=== PATIENT | female | born 1940 | race African-American/Black ===

== ENCOUNTER 2020-06-28 14:38 | Inpatient (IN) | payer OTHER ==
[~2020-06-28] VITALS: Ht 165.1 cm; Wt 99.8 kg
[2020-06-28 16:26] LABS: BASOPHILS % 0.5 % (0.0-2.0); EOSINOPHILS % 1.6 % (0.0-5.0); HEMATOCRIT. 38.8 % (36.0-48.0); HEMOGLOBIN. 12.5 g/dL (12.0-16.0); LYMPHOCYTES % 10.7 % (20.0-50.0); MEAN CORPUSCULAR HEMOGLOBIN 28.9 pg (28.0-32.0); MEAN CORPUSCULAR VOLUME 89.8 fL (81.0-99.0); MEAN PLATELET VOLUME 8.6 fl (7.4-10.4); MONOCYTES % 6.2 % (2.0-8.0); PLATELET 286 x1000/uL (130-400); RED BLOOD CELL COUNT 4.32 mill/uL (4.2-5.4); RED CELL DISTRIBUTION WIDTH 19.6 % (11.6-14.6)
[2020-06-28 16:30] LABS: INR 3.5; PARTIAL THROMBOPLASTIN TIME 49.6 sec (23.4-31.0); PROTHROMBIN TIME 34.9 sec (9.6-11.0)
[2020-06-28 16:43] LABS: CHLORIDE 104 mEq/L (98-107)
[2020-06-28] MEDS ORDERED: ASPIRIN 325MG EC TABLET PO ONE (17:30)
[2020-06-28] MEDS ORDERED: MAGNESIUM/ALUMINUM HYDROXIDE/SIMETHICONE 30ML UDC PO PRN (23:15)
[2020-06-28] MEDS ORDERED: ZOLPIDEM TARTRATE 5MG TABLET PO PRN (23:15)
[2020-06-28] MEDS ORDERED: DIPHENHYDRAMINE 50MG/ML VIAL IV PRN (23:15)
[2020-06-28] MEDS ORDERED: DEXTROSE 50% WATER 50ML SYRINGE IV PRN (23:15)
[2020-06-28] MEDS ORDERED: ACETAMINOPHEN 325MG TABLET PO PRN (23:15)
[2020-06-28] MEDS ORDERED: ONDANSETRON HCL 4MG/2ML INJ IV PRN (23:15)
[2020-06-28] MEDS ORDERED: GUAIFENESIN 200MG/10ML SUGAR FREE UDC PO PRN (23:15)
[2020-06-28] MEDS ORDERED: CLONIDINE 0.1MG TABLET PO PRN (23:15)
[2020-06-29] MEDS: INSULIN GLARGINE UD 100 UNITS/ML SYR SUBCUT SCH ×2 (01:24→21:49)
[2020-06-29] MEDS: HYDRALAZINE HCL 25MG TABLET PO SCH ×3 (06:07→21:54)
[2020-06-29] MEDS: SODIUM CHLORIDE 0.9% INJ 3ML FLUSH IVF SCH ×3 (06:10→21:39)
[2020-06-29 06:21] LABS: INR 3.7; PROTHROMBIN TIME 36.1 sec (9.6-11.0)
[2020-06-29] MEDS: INSULIN LISPRO 100 UNITS/ML SUBCUT SCH ×4 (06:24→21:49)
[2020-06-29] MEDS: BLOOD SUGAR DIAGNOSTIC STRIP TEST SCH ×4 (06:24→21:38)
[2020-06-29] MEDS: AMLODIPINE 5MG TABLET PO SCH (08:37)
[2020-06-29] MEDS: ATENOLOL 25MG TABLET PO SCH (08:38)
[2020-06-29 11:17] VITALS: BP 172/42
[2020-06-29] MEDS ORDERED: ATEN-42 MT (11:46)
[2020-06-29] MEDS ORDERED: LOVA10TA54 MT (11:46)
[2020-06-29] MEDS ORDERED: NEOAPJ IM (11:47)
[2020-06-29] MEDS ORDERED: HYDR-4133 MT (11:47)
[2020-06-29] MEDS ORDERED: AMLO2.5T45 MT (11:48)
[2020-06-29] MEDS ORDERED: ASPI-986 MT (11:48)
[2020-06-29] MEDS ORDERED: WARF1TAB85 MT (11:48)
[2020-06-29 12:00] VITALS: BP 172/42
[2020-06-29 16:00] VITALS: BP_SYST 156; BP_SYST 180; BP_DIAS 43; BP_DIAS 66
[2020-06-29 20:00] VITALS: BP 137/73
[2020-06-29] MEDS: ACETAMINOPHEN 325MG TABLET PO PRN (21:56)
[2020-06-30] VITALS (7 sets, daily range): BP systolic 118–167; BP diastolic 30–53
[2020-06-30] MEDS ORDERED: LIDOCAINE 5% PATCH TOP PRN (01:00)
[2020-06-30] MEDS: SODIUM CHLORIDE 0.9% INJ 3ML FLUSH IVF SCH ×3 (06:00→22:00)
[2020-06-30] MEDS: ACETAMINOPHEN 325MG TABLET PO PRN ×2 (06:50→17:01)
[2020-06-30] MEDS: BLOOD SUGAR DIAGNOSTIC STRIP TEST SCH ×4 (06:51→21:00)
[2020-06-30] MEDS: HYDRALAZINE HCL 25MG TABLET PO SCH ×3 (06:51→22:00)
[2020-06-30] MEDS: INSULIN LISPRO 100 UNITS/ML SUBCUT SCH ×4 (06:51→21:00)
[2020-06-30 06:57] LABS: BASOPHILS % 0.7 % (0.0-2.0); EOSINOPHILS % 0.3 % (0.0-5.0); HEMOGLOBIN. 8.9 g/dL (12.0-16.0); LYMPHOCYTES % 20.3 % (20.0-50.0); MEAN CORPUSCULAR HEMOGLOBIN 29.2 pg (28.0-32.0); MEAN CORPUSCULAR VOLUME 88.9 fL (81.0-99.0); MEAN PLATELET VOLUME 8.5 fl (7.4-10.4); MONOCYTES % 14.9 % (2.0-8.0); NEUTROPHILS % 63.8 % (40.0-76.0); PLATELET 246 x1000/uL (130-400); RED BLOOD CELL COUNT 3.03 mill/uL (4.2-5.4); RED CELL DISTRIBUTION WIDTH 19.2 % (11.6-14.6)
[2020-06-30 07:00] LABS: PROTHROMBIN TIME 20.5 sec (9.6-11.0)
[2020-06-30 07:05] LABS: CHLORIDE 106 mEq/L (98-107)
[2020-06-30] MEDS: ATENOLOL 25MG TABLET PO SCH (09:27)
[2020-06-30] MEDS: AMLODIPINE 5MG TABLET PO SCH (09:28)
[2020-06-30] MEDS ORDERED: WARFARIN SODIUM 2.5MG TABLET PO NR (18:00)
[2020-06-30] MEDS ORDERED: LIDOCAINE 5% PATCH TOP SCH ×2 (18:30)
[2020-06-30] MEDS ORDERED: DOPAMINE 400MG/250ML PREMIX 250 ML IV PRN (19:15)
[2020-06-30] MEDS: THEOPHYLLINE ANHYDROUS 80 MG/15 ML 120ML PO SCH (21:00)
[2020-06-30] MEDS: INSULIN GLARGINE UD 100 UNITS/ML SYR SUBCUT SCH (22:00)
[2020-07-01] VITALS (48 sets, daily range): BP systolic 109–166; BP diastolic 27–92
[2020-07-01] MEDS: THEOPHYLLINE ANHYDROUS 80 MG/15 ML 120ML PO SCH ×2 (05:00→17:58)
[2020-07-01] MEDS: SODIUM CHLORIDE 0.9% INJ 3ML FLUSH IVF SCH ×3 (05:01→21:27)
[2020-07-01 06:13] LABS: INR 1.5; PROTHROMBIN TIME 15.2 sec (9.6-11.0)
[2020-07-01] MEDS: HYDRALAZINE HCL 25MG TABLET PO SCH ×3 (06:28→21:27)
[2020-07-01] MEDS: INSULIN LISPRO 100 UNITS/ML SUBCUT SCH ×4 (07:56→21:35)
[2020-07-01] MEDS: BLOOD SUGAR DIAGNOSTIC STRIP TEST SCH ×4 (07:56→21:35)
[2020-07-01] MEDS ORDERED: LIDOCAINE 5% PATCH TOP SCH ×2 (09:00→17:45)
[2020-07-01] MEDS: AMLODIPINE 5MG TABLET PO SCH (09:00)
[2020-07-01] MEDS: ACETAMINOPHEN 325MG TABLET PO PRN (12:27)
[2020-07-01] MEDS: ENOXAPARIN 100MG/ML SYR SUBCUT SCH (17:57)
[2020-07-01] MEDS: LIDOCAINE 5% PATCH TOP SCH (21:27)
[2020-07-01] MEDS: INSULIN GLARGINE UD 100 UNITS/ML SYR SUBCUT SCH (21:36)
[2020-07-02] VITALS (44 sets, daily range): BP systolic 115–180; BP diastolic 37–74
[2020-07-02] MEDS: ENOXAPARIN 100MG/ML SYR SUBCUT SCH ×2 (05:31→17:31)
[2020-07-02] MEDS: THEOPHYLLINE ANHYDROUS 80 MG/15 ML 120ML PO SCH (05:32)
[2020-07-02] MEDS: HYDRALAZINE HCL 25MG TABLET PO SCH ×3 (05:32→21:29)
[2020-07-02] MEDS: SODIUM CHLORIDE 0.9% INJ 3ML FLUSH IVF SCH ×3 (05:32→21:29)
[2020-07-02 06:06] LABS: INR 1.3
[2020-07-02] MEDS: BLOOD SUGAR DIAGNOSTIC STRIP TEST SCH ×4 (07:30→20:28)
[2020-07-02] MEDS: INSULIN LISPRO 100 UNITS/ML SUBCUT SCH ×4 (08:00→20:28)
[2020-07-02] MEDS: AMLODIPINE 5MG TABLET PO SCH (08:52)
[2020-07-02] MEDS: LIDOCAINE 5% PATCH TOP SCH (08:53)
[2020-07-02] MEDS: ACETAMINOPHEN 325MG TABLET PO PRN ×2 (09:18→20:33)
[2020-07-02] MEDS: INSULIN GLARGINE UD 100 UNITS/ML SYR SUBCUT SCH (21:29)
[2020-07-03] VITALS (21 sets, daily range): BP systolic 69–151; BP diastolic 42–63
[2020-07-03] MEDS ORDERED: CEFAZOLIN 1000MG PREMIX 50 ML IV NR (01:00)
[2020-07-03 05:26] LABS: BASOPHILS % 0.6 % (0.0-2.0); EOSINOPHILS % 2.5 % (0.0-5.0); HEMATOCRIT. 25.4 % (36.0-48.0); HEMOGLOBIN. 8.3 g/dL (12.0-16.0); LYMPHOCYTES % 18.8 % (20.0-50.0); MEAN CORPUSCULAR HEMOGLOBIN 29.3 pg (28.0-32.0); MEAN CORPUSCULAR VOLUME 89.7 fL (81.0-99.0); MEAN PLATELET VOLUME 8.3 fl (7.4-10.4); MONOCYTES % 9.7 % (2.0-8.0); NEUTROPHILS % 68.4 % (40.0-76.0); PLATELET 336 x1000/uL (130-400); RED BLOOD CELL COUNT 2.83 mill/uL (4.2-5.4)
[2020-07-03 05:36] LABS: CHLORIDE 105 mEq/L (98-107)
[2020-07-03 05:43] LABS: INR 1.2; PROTHROMBIN TIME 12.7 sec (9.6-11.0)
[2020-07-03] MEDS: HYDRALAZINE HCL 25MG TABLET PO SCH ×3 (06:00→23:03)
[2020-07-03] MEDS: SODIUM CHLORIDE 0.9% INJ 3ML FLUSH IVF SCH ×3 (06:18→21:09)
[2020-07-03] MEDS: BLOOD SUGAR DIAGNOSTIC STRIP TEST SCH ×4 (07:30→21:09)
[2020-07-03] MEDS: AMLODIPINE 5MG TABLET PO SCH (08:57)
[2020-07-03] MEDS: LIDOCAINE 5% PATCH TOP SCH (09:00)
[2020-07-03] MEDS ORDERED: LIDOCAINE HCL 1% 20ML VIAL (Pyxis) INJ ONE ×2 (13:51→13:59)
[2020-07-03] MEDS ORDERED: GENTAMICIN SULF 40MG/ML 2ML VIAL ONE (13:51)
[2020-07-03] MEDS ORDERED: GENTAMICIN/NS IRRIGATION 500 ML IR ONE (13:52)
[2020-07-03] MEDS ORDERED: FENTANYL CITRATE/PF 50MCG/ML 2ML VIAL ONE (14:25)
[2020-07-03] MEDS ORDERED: MIDAZOLAM HCL 2 MG/2 ML VIAL ONE (14:25)
[2020-07-03] MEDS ORDERED: DIPHENHYDRAMINE 50MG/ML VIAL ONE (15:09)
[2020-07-03] MEDS ORDERED: IODIXANOL 320MG/ML 100 ML BOTTLE IV ONE (15:42)
[2020-07-03] MEDS ORDERED: CEFAZOLIN 1000MG PREMIX 100 ML IV ONE (16:59)
[2020-07-03] MEDS ORDERED: HYDROCODONE/ACETAMINOPHEN 5/325MG TABLET PO PRN (17:15)
[2020-07-03] MEDS: INSULIN LISPRO 100 UNITS/ML SUBCUT SCH ×2 (18:00→21:00)
[2020-07-03] MEDS: INSULIN GLARGINE UD 100 UNITS/ML SYR SUBCUT SCH (22:00)
[2020-07-04] VITALS (18 sets, daily range): BP systolic 100–147; BP diastolic 39–55
[2020-07-04] MEDS: SODIUM CHLORIDE 0.9% INJ 3ML FLUSH IVF SCH ×3 (05:23→20:55)
[2020-07-04] MEDS: HYDRALAZINE HCL 25MG TABLET PO SCH ×3 (05:23→20:55)
[2020-07-04] MEDS: BLOOD SUGAR DIAGNOSTIC STRIP TEST SCH ×4 (08:22→20:55)
[2020-07-04 09:12] LABS: BASOPHILS % 0.5 % (0.0-2.0); EOSINOPHILS % 1.4 % (0.0-5.0); HEMATOCRIT. 24.5 % (36.0-48.0); HEMOGLOBIN. 8.1 g/dL (12.0-16.0); MEAN CORPUSCULAR HEMOGLOBIN 29.5 pg (28.0-32.0); MEAN CORPUSCULAR VOLUME 89.6 fL (81.0-99.0); MEAN PLATELET VOLUME 7.7 fl (7.4-10.4); MONOCYTES % 10.8 % (2.0-8.0); NEUTROPHILS % 71.3 % (40.0-76.0); PLATELET 315 x1000/uL (130-400); RED BLOOD CELL COUNT 2.73 mill/uL (4.2-5.4); RED CELL DISTRIBUTION WIDTH 17.7 % (11.6-14.6)
[2020-07-04 09:21] LABS: CHLORIDE 103 mEq/L (98-107)
[2020-07-04] MEDS: ACETAMINOPHEN 325MG TABLET PO PRN ×2 (09:38→20:55)
[2020-07-04] MEDS: AMLODIPINE 5MG TABLET PO SCH (09:48)
[2020-07-04] MEDS: LIDOCAINE 5% PATCH TOP SCH (09:48)
[2020-07-04] MEDS: INSULIN LISPRO 100 UNITS/ML SUBCUT SCH ×4 (09:51→21:46)
[2020-07-04 18:58] LABS: INR 1.1; PROTHROMBIN TIME 11.4 sec (9.6-11.0)
[2020-07-04] MEDS ORDERED: WARFARIN SODIUM 5MG TABLET PO SCH (20:00)
[2020-07-04] MEDS: INSULIN GLARGINE UD 100 UNITS/ML SYR SUBCUT SCH (21:46)
[2020-07-05] VITALS: BP 139/43
[2020-07-05 05:20] LABS: INR 1.1; PROTHROMBIN TIME 11.4 sec (9.6-11.0)
[2020-07-05 05:47] VITALS: BP 144/59
[2020-07-05] MEDS: HYDRALAZINE HCL 25MG TABLET PO SCH (06:14)
[2020-07-05] MEDS: BLOOD SUGAR DIAGNOSTIC STRIP TEST SCH ×2 (06:14→12:43)
[2020-07-05] MEDS: SODIUM CHLORIDE 0.9% INJ 3ML FLUSH IVF SCH (06:20)
[2020-07-05] MEDS: INSULIN LISPRO 100 UNITS/ML SUBCUT SCH ×2 (07:15→12:54)
[2020-07-05 08:00] VITALS: BP 131/40
[2020-07-05] MEDS: LIDOCAINE 5% PATCH TOP SCH (08:52)
[2020-07-05] MEDS: AMLODIPINE 5MG TABLET PO SCH (08:53)
[2020-07-05] MEDS ORDERED: ATENOLOL 25MG TABLET PO SCH (09:00)
[2020-07-05] MEDS: ACETAMINOPHEN 325MG TABLET PO PRN (10:56)
[2020-07-05 12:00] VITALS: BP 126/39
[2020-07-05 16:00] VITALS: BP 140/41
[2020-07-05 16:47] VITALS: BP 140/41
== END 2020-07-05 18:10 | DRG 243 ==
LOC: ER 14:38 → MICUSO 18:11 → 5WST 06-29 09:44 → 5EST 06-30 21:53 → 5WST 07-04 23:15
PROVIDERS: ADMIT Internal Medicine; ATTEND Internal Medicine
PROC: 0JPT0PZ Removal of Cardiac Rhythm Related Device from Trunk Subcutaneous Tissue and Fascia, Open Approach (ICD-10-PCS; principal; 2020-07-03)
PROC: 0JH606Z Insertion of Pacemaker, Dual Chamber into Chest Subcutaneous Tissue and Fascia, Open Approach (ICD-10-PCS; 2020-07-03)
PROC: 02HK3JZ Insertion of Pacemaker Lead into Right Ventricle, Percutaneous Approach (ICD-10-PCS; 2020-07-03)
PROC: 02PA3MZ Removal of Cardiac Lead from Heart, Percutaneous Approach (ICD-10-PCS; 2020-07-03)
DX: T82.118A Breakdown (mechanical) of other cardiac electronic device, initial encounter (principal); D68.9 Coagulation defect, unspecified; E11.22 Type 2 diabetes mellitus with diabetic chronic kidney disease; I12.9 Hypertensive chronic kidney disease with stage 1 through stage 4 chronic kidney disease, or unspecified chronic kidney disease; I27.20 Pulmonary hypertension, unspecified; I70.0 Atherosclerosis of aorta; I44.1 Atrioventricular block, second degree; N18.9 Chronic kidney disease, unspecified; I25.10 Atherosclerotic heart disease of native coronary artery without angina pectoris; Z95.0 Presence of cardiac pacemaker; Z88.8 Allergy status to other drugs, medicaments and biological substances; Y71.8 Miscellaneous cardiovascular devices associated with adverse incidents, not elsewhere classified; Y83.8 Other surgical procedures as the cause of abnormal reaction of the patient, or of later complication, without mention of misadventure at the time of the procedure; G90.8 Other disorders of autonomic nervous system; I35.8 Other nonrheumatic aortic valve disorders; Z20.822 Contact with and (suspected) exposure to COVID-19; I49.8 Other specified cardiac arrhythmias; Y92.89 Other specified places as the place of occurrence of the external cause; Z79.899 Other long term (current) drug therapy; I49.5 Sick sinus syndrome; M17.0 Bilateral primary osteoarthritis of knee
CPT/HCPCS: 33207; 33233; 36415; 71045; 75820; 80048; 80053; 82962; 83036; 83735; 83880; 84443; 84484; 85025; 87426; 93005; 93306; 93880; 97162; 97164; 97166; 99285; A4565; C1769; C1785; C1786; C1893; C1898; J0690; J1200; J1265; J1580; J1650; J1815; J2250; J3010; J3490; Q9967; U0003